=== PATIENT | female | born 1980 | race Caucasian/White ===

== ENCOUNTER → 2017-10-18 | Day surgery (SDC) | payer OTHER | END | disposition home or self-care (01) | LOC: JRADUS-SUR 09:27 → JRAD 09:27 | PROVIDERS: ATTEND Family Medicine | PROC: BU12YZZ Fluoroscopy of Bilateral Fallopian Tubes using Other Contrast (ICD-10-PCS; principal; 2017-10-18) | DX: N93.9 Abnormal uterine and vaginal bleeding, unspecified (principal) | CPT/HCPCS: 58340; 74740-TC-FY; 76000-TC-FY; 84703 ==

== ENCOUNTER 2022-08-12 17:48 | Emergency (ER) | payer OTHER ==
[2022-08-12 17:58] VITALS: BP 109/55; PULSE 82; RESP 18; TEMP 99.8; BMI 28.3
[2022-08-12] MEDS ORDERED: ACETAMINOPHEN 500 MG TABLET (FP) PO ONE (18:04)
[2022-08-12 20:04] LABS: HCG,QUALITATIVE URINE Positive; PH,URINE 5.5 (5.0-8.0); URINE APPEARANCE CLEAR; URINE BILIRUBIN NEGATIVE (NEGATIVE); URINE COLOR YELLOW; URINE GLUCOSE (UA) NEGATIVE (NEGATIVE); URINE KETONE TRACE (NEGATIVE); URINE LEUK ESTERASE NEGATIVE (NEGATIVE); URINE NITRITE NEGATIVE (NEGATIVE); URINE PROTEIN NEGATIVE (NEGATIVE); URINE UROBILINOGEN 0.2 mg/dL (0.2-1.0)
[2022-08-12] MEDS ORDERED: AZITHROMYCIN 250 MG TABLET PO ONE (20:11)
[2022-08-12] MEDS ORDERED: ALBUTEROL SO4 HFA INHALER IH ONE ×2 (20:12→20:25)
[2022-08-12] MEDS ORDERED: AZITHROMYCIN 500 MG TABLET ONE (20:25)
== END 2022-08-12 20:32 | disposition home or self-care (01) ==
LOC: JER 17:48
DX: O99.511 Diseases of the respiratory system complicating pregnancy, first trimester (principal); J20.9 Acute bronchitis, unspecified; Z3A.01 Less than 8 weeks gestation of pregnancy
CPT/HCPCS: 0241U-QW; 71046-TC-FY; 81003; 84703; 87086; 99284-25

== ENCOUNTER 2023-12-03 13:23 | Emergency (ER) | payer OTHER ==
[2023-12-03 13:41] VITALS: BP 137/59; PULSE 91; RESP 20; TEMP 98.2; BMI 31.6
[2023-12-04] MEDS ORDERED: ALBUTEROL SO4 2.5/IPRATROPIUM 0.5 INH SOL 3 ML VIAL.NEB. NEB ONE (08:24)
== END 2023-12-03 14:06 | disposition home or self-care (01) ==
LOC: JER 13:23
DX: S00.35XA Superficial foreign body of nose, initial encounter (principal); W49.04XA Ring or other jewelry causing external constriction, initial encounter
CPT/HCPCS: 99283-25